=== PATIENT | female | born 1970 | race Caucasian/White ===

== ENCOUNTER 2018-04-24 20:10 | Emergency (ER) | payer OTHER ==
[2018-04-24 20:19] VITALS: BMI 25.1
--- NOTE | 2018-04-24 20:52 | PDOC ---
History of Present Illness <Rhea Barrera - Last Filed: 04/24/18 23:52> - General History Source: Patient - History of Present Illness Initial Comments: 04/24/18 21:11 The patient is a 48 year old female with a PMH of nephrolithiasis (s/p uteral stenting), Hyperthyroidism and Seasonal Allergies presents to our ED c/o 1 month h/o worsening abdominal pain. States the pain is L sided, intermittent, "burning" and sometimes radiates to her back. Came to the ED this evening because the pain has progressively worsened over the last 2-3 days. No dysuria/ hematuria. 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 She was scheduled for TVUS earlier this week however she cancelled because she was on her menstrual cycle. The patient denies chest pain, shortness of breath, fever/chills, numbness/ tingling, recent travel or sick contacts. NKDA Surgical: Uteral Stent Social: denies toxic habits PMD: Dr. Lam ([place]) <Nani Youngblood - Last Filed: 04/25/18 00:18> - General Chief Complaint: Pain, Acute Stated Complaint: PAIN Time Seen by Provider: 04/24/18 20:40 Past History <Rhea Barrera - Last Filed: 04/24/18 23:52> - Past Medical History COPD: No Thyroid Disease: Yes (hyperthyroid) - Suicide/Smoking/Psychosocial Hx Smoking History: Current every day smoker Number of Cigarettes Smoked Daily: 5 Information on smoking cessation initiated: No <Nani Youngblood - Last Filed: 04/25/18 00:18> - Past Medical History Allergies/Adverse Reactions: Allergies Allergy/AdvReac Type Severity Reaction Status Date / Time No Known Allergies Allergy Verified 04/24/18 20:16 Home Medications: Ambulatory Orders Polyethylene Glycol 3350 [Miralax (For Daily Use) -] 17 gm PO ONCE #1 bottle Review of Systems - Review of Systems Constitutional: No: Chills, Fever HEENTM: No: Recent change in vision Respiratory: No: Cough, Shortness of Breath, Hemoptysis Cardiac (ROS): No: Chest Pain, Lightheadedness, Palpitations, Syncope ABD/GI: Yes: Abdominal cramping. No: Constipated, Diarrhea, Nausea, Rectal Bleeding, Vomiting : No: Burning, Dysuria <Nani Youngblood - Last Filed: 04/25/18 00:18> *Physical Exam - Vital Signs Last Vital Signs Temp Pulse Resp BP Pulse Ox 98.5 F 93 H 18 160/88 99 04/24/18 20:16 04/24/18 20:16 04/24/18 20:16 04/24/18 20:16 04/24/18 20:16 <Rhea Barrera - Last Filed: 04/24/18 23:52> - Vital Signs Last Vital Signs Temp Pulse Resp BP Pulse Ox 98.5 F 93 H 18 160/88 99 04/24/18 20:16 04/24/18 20:16 04/24/18 20:16 04/24/18 20:16 04/24/18 20:16 - Physical Exam General Appearance: Yes: Nourished, Appropriately Dressed HEENT: positive: Normal Voice, Hearing Grossly Normal Neck: positive: Trachea midline, Supple Respiratory/Chest: positive: Lungs Clear, Normal Breath Sounds Cardiovascular: positive: Regular Rate, S1, S2 Gastrointestinal/Abdominal: positive: Normal Bowel Sounds, Soft. negative: Distended, Guarding, Rebound, Tenderness, Hernia, Mass Musculoskeletal: negative: CVA Tenderness (R), CVA Tenderness (L) Extremity: positive: Normal Capillary Refill, Normal Inspection Integumentary: positive: Normal Color, Dry, Warm Neurologic: positive: Fully Oriented, Alert <RyliePhuong kiddica - Last Filed: 04/25/18 00:18> Moderate Sedation - Procedure Monitoring Vital Signs: Procedure Monitoring Vital Signs Temperature 98.5 F 04/24/18 20:16 Pulse Rate 93 H 04/24/18 20:16 Respiratory Rate 18 04/24/18 20:16 Blood Pressure 160/88 04/24/18 20:16 O2 Sat by Pulse Oximetry (%) 99 04/24/18 20:16 <Rhea Barrera - Last Filed: 04/24/18 23:52> - Procedure Monitoring Vital Signs: Procedure Monitoring Vital Signs Temperature 98.5 F 04/24/18 20:16 Pulse Rate 93 H 04/24/18 20:16 Respiratory Rate 18 04/24/18 20:16 Blood Pressure 160/88 04/24/18 20:16 O2 Sat by Pulse Oximetry (%) 99 04/24/18 20:16 <Nani Youngblood - Last Filed: 04/25/18 00:18> ED Treatment Course - LABORATORY CBC & Chemistry Diagram: 04/24/18 21:54 04/24/18 21:54 - ADDITIONAL ORDERS Additional order review: Laboratory Results 04/24/18 04/24/18 23:09 21:54 Sodium 142 Potassium 4.3 Chloride 108 H Carbon Dioxide 26 Anion Gap 8 BUN 17 Creatinine 0.7 Creat Clearance w eGFR > 60 Random Glucose 100 Calcium 8.4 L Total Bilirubin < 0.1 L AST 23 ALT 21 Alkaline Phosphatase 73 Total Protein 6.8 Albumin 3.5 Urine Color Yellow Urine Appearance Cloudy Urine pH 6.0 Ur Specific [place] 1.023 Urine Protein 2+ H Urine Glucose (UA) Negative Urine Ketones Negative Urine Blood 3+ H Urine Nitrite Negative Urine Bilirubin Negative Urine Urobilinogen Negative Ur Leukocyte Esterase Trace Urine WBC (Auto) 3 Urine RBC (Auto) 2040 Ur Epithelial Cells Rare Urine Mucus Rare Urine HCG, Qual Negative 04/24/18 21:54 RBC 4.53 MCV 76.9 L MCHC 32.6 RDW 26.2 H MPV 9.6 Neutrophils % 60.5 Lymphocytes % 30.7 Monocytes % 4.7 Eosinophils % 3.4 Basophils % 0.7 - Medications Given in the ED: ED Medications Discontinued Medications Generic Name Dose Route Start Last Admin Trade Name Freq PRN Reason Stop Dose Admin Acetaminophen 975 mg 04/24/18 21:46 04/24/18 22:06 Tylenol - PO 04/24/18 21:47 975 mg ONCE ONE Administration Sodium Chloride 1,000 ml 04/24/18 21:16 04/24/18 22:06 Normal Saline - IV 04/24/18 21:17 1,000 ml ONCE ONE Administration <Rhea Barrera - Last Filed: 04/24/18 23:52> - LABORATORY CBC & Chemistry Diagram: 04/24/18 21:54 04/24/18 21:54 <Nani Youngblood - Last Filed: 04/25/18 00:18> Medical Decision Making - Medical Decision Making 04/24/18 21:14 48 year old female with PMH of hyperthyroidism and nephrolithiasis presents with cramping abdominal pain that radiates to her R flank. DDx includes: obstructive nephrolithiasis, cystitis/pyelonephritis, also consider ovarian torsion, gastritis. Will obtain basic labs, UA/Urine Cx. Reassess. 04/24/18 22:01 IV access in R AC - 20 lc Labs drawn and pending 04/24/18 22:12 No leukocytosis 04/24/18 22:51 CMP unremarkable. 04/24/18 23:28 UA shows 3+ blood, patient currently on menstrual cycle Urine negative 04/24/18 23:43 Patient reassessed @ bedside. Pain improved. 04/24/18 23:44 TVUS negative for torsion Renal U/S pending 04/24/18 23:46 Renal U/S negative for hydronephrosis, renal mass or stone. Patient symptomatically improved, tolerating PO intake, ambulatory. Will discharge home with supportive care and PMD follow-up. I discussed the physical exam findings, ancillary test results and final diagnoses with the patient. I answered all of the patient's questions. The patient was satisfied with the care received and felt comfortable with the discharge plan and treatment plan. The patient will return to the Emergency Department with any new, persistent or worsening symptoms. <Nani Youngblood - Last Filed: 04/25/18 00:18> *DC/Admit/Observation/Transfer - Discharge Dispostion Decision to Admit order: No <BarreraRhea - Last Filed: 04/24/18 23:52> <Nani Youngblood - Last Filed: 04/25/18 00:18> Diagnosis at time of Disposition: Constipation - Discharge Dispostion Disposition: HOME Condition at time of disposition: Improved - Prescriptions Prescriptions: Polyethylene Glycol 3350 [Miralax (For Daily Use) -] 17 gm PO ONCE #1 bottle - Referrals Referrals: ON STAFF,NOT [Primary Care Provider] - - Patient Instructions Printed Discharge Instructions: Constipation Additional Instructions: Your ultrasound showed constipation. We have sent a prescription to your pharmacy. Please take as directed. Follow-up with your primary care doctor in the next 1 week. We have provided copies of your ultrasound. Please take these to your primary care appointment. Your care is not complete until you are evaluated by your primary care doctor.
[2018-04-24] MEDS ORDERED: SODIUM CHLORIDE 0.9% 500 ML INFUS.BAG IV ONE (21:16)
--- NOTE | 2018-04-24 21:27 | PDOC ---
Attending Attestation - HPI HPI: 04/24/18 23:04 The patient is a 48 year old female with a significant past medical history of nephrolithiasis (s/p uteral stenting), s/p tubal ligation (5 years ago) Hyperthyroidism and Seasonal Allergies who presents to the ED complaining of constant, intense lower left quadrant pain radiating to her left flank. The patient notes she has been constipated, last bowel movement was today but very little, but prior to today, last stool was Wednesday. The patient reports to not be passing gas. Patient states this pain has been present for months but has worsened recently. Patient denies pain with urination, chills, fever, vomiting, nausea, diarrhea. - Physicial Exam PE: 04/24/18 23:16 GENERAL: Awake, alert, and fully oriented, in no acute distress HEAD: No signs of trauma LUNGS: Breath sounds equal, clear to auscultation bilaterally. No wheezes, and no crackles HEART: Regular rate and rhythm, normal S1 and S2, no murmurs, rubs or gallops ABDOMEN: (+) minimal diffuse tenderness. Soft, normoactive bowel sounds. No rebound or guarding. No masses EXTREMITIES: Normal range of motion, no edema. No clubbing or cyanosis. No cords, erythema, or tenderness NEUROLOGICAL: Cranial nerves II through XII grossly intact. Normal speech, normal gait SKIN: Warm, Dry, normal turgor, no rashes - Medical Decision Making 04/24/18 23:19 Documentation prepared by Martha Oreilly, acting as medical laboratory assistant for Rhea Barrera MD. <Martha Oreilly - Last Filed: 04/24/18 23:16> - Resident Resident Name: Nani Youngblood - ED Attending Attestation I have performed the following: I have examined & evaluated the patient, The case was reviewed & discussed with the resident, I agree w/resident's findings & plan - Medical Decision Making 04/24/18 23:22 Labs are normal. Pt has a microcytic anemia. Pt is afebrile and she has improved abd pain. She has been constipated. Last BM was minimal today and then prior to today it was on Wed 5 days ago. She is very gassy and has abd pain that is mild and diffuse. She has no rebound and no guarding, and no flank pain. 04/24/18 23:43 3+ blood in the urine; pt is on her menses. Pt has trace leukocytes- not an infection 04/24/18 23:44 Negative preg test (pt has a hx of tubal ligation 5 yrs ago) Patient Name: JESSICA HEARD THIS IS A PRELIMINARY REPORT FROM [facility] DATE OF SERVICE: 2018-04-24 23:02:26 IMAGES: 34 EXAM: Ultrasound TRANSVAGINAL ULTRASOUND US HISTORY: Left lower quadrant pain COMPARISON: None. FINDINGS: The uterus measures 10.8 cm in length. Endometrium is 7 mm. Left ovary measures 1.6 x 2.7 x 1.8 cm. Doppler imaging demonstrates positive vascular flow with arterial and venous waveforms. The right ovary measures 2.0 x 3.3 x 2.2 cm. Doppler imaging demonstrates positive vascular flow with arterial and venous waveforms IMPRESSION: No acute findings. No ovarian torsion 04/24/18 23:45 Pt has gas and constipation and she will be discharged once her other sono result returns. 04/24/18 23:52 Patient Name: JESSICA HEARD THIS IS A PRELIMINARY REPORT FROM [facility] DATE OF SERVICE: 2018-04-24 22:54:36 IMAGES: 38 EXAM: Ultrasound KIDNEY / RENAL US HISTORY: Left lower quadrant pain COMPARISON: None. FINDINGS: Right kidney measures 11.3 cm in length. There is a 3.9 x 3.6 x 3.8 cm cyst. There is no hydronephrosis or renal stone The left kidney measures 11.3 cm in length without hydronephrosis, renal mass, or stone IMPRESSION: No acute findings <Rhea Barrera - Last Filed: 04/24/18 23:52>
[2018-04-24] MEDS ORDERED: ACETAMINOPHEN 500 MG TABLET (FP) PO ONE (21:46)
[2018-04-24] MEDS ORDERED: ACETAMINOPHEN 325 MG TABLET (FP) ONE (22:01)
[2018-04-24 22:03] LABS: BASO % 0.7 % (0-2.0); EOS % 3.4 % (0-4.5); HEMATOCRIT 34.8 % (32.4-45.2); HEMOGLOBIN 11.4 GM/dL (10.7-15.3); LYMPH % 30.7 % (8-40); MCH 25.1 pg (25.7-33.7); MCHC 32.6 g/dl (32.0-36.0); MEAN CELL VOLUME 76.9 fl (80-96); MEAN PLT VOLUME 9.6 fl (7.5-11.1); MONO % 4.7 % (3.8-10.2); NEUT % 60.5 % (42.8-82.8); PLATELET COUNT 245 K/MM3 (134-434); RBC 4.53 M/mm3 (3.60-5.2); RDW 26.2 % (11.6-15.6); WHITE BLOOD COUNT 8.2 K/mm3 (4.0-10.0)
[2018-04-24] MEDS ORDERED: POLYETHYLENE GLYCOL 3350 119 GM BTL PO ONE (22:20)
[2018-04-24] MEDS ORDERED: LACTULOSE 20 GM/30 ML UDC (FOR ORAL USE ONLY) PO ONE (22:20)
[2018-04-24 22:47] LABS: ALBUMIN 3.5 g/dl (3.4-5.0); ALK PHOS 73 U/L (45-117); ANION GAP 8 MMOL/L (8-16); BILIRUBIN,TOTAL < 0.1 mg/dL (0.2-1); BLOOD UREA NITROGEN 17 mg/dL (7-18); CALCIUM 8.4 mg/dL (8.5-10.1); CHLORIDE 108 mmol/L (98-107); CO2 26 mmol/L (21-32); CREATININE 0.7 mg/dL (0.55-1.3); GLUCOSE,RANDOM 100 mg/dL (74-106); SGPT/ALT 21 U/L (13-61); SODIUM 142 mmol/L (136-145); TOT PROT 6.8 g/dl (6.4-8.2)
[2018-04-24 22:48] LABS: POTASSIUM 4.3 mmol/L (3.5-5.1); SGOT/AST 23 U/L (15-37)
[2018-04-24 23:17] LABS: URINE APPEARANCE CLOUDY; URINE BILIRUBIN NEGATIVE (<2.0 mg/dL); URINE COLOR YELLOW; URINE GLUCOSE (UA) NEGATIVE (NEGATIVE); URINE KETONE NEGATIVE (NEGATIVE); URINE LEUK ESTERASE TRACE (NEGATIVE); URINE NITRITE NEGATIVE (NEGATIVE); URINE PROTEIN 2+ (NEGATIVE); URINE UROBILINOGEN NEGATIVE mg/dL (0.2-1.0)
[2018-04-24 23:19] LABS: ANISOCYTOSIS 2+
[2018-04-24 23:25] LABS: EPI CELLS RARE /HPF (FEW); URINE MUCUS RARE
[2018-04-24 23:26] LABS: HCG,QUALITATIVE URINE Negative
[2018-04-24] MEDS ORDERED: LACTULOSE 20 GM/30 ML UDC (FOR ORAL USE ONLY) ONE (23:54)
[2018-04-25 00:09] VITALS: BP 122/71; PULSE 79; TEMP 97.9
== END 2018-04-25 00:13 | disposition home or self-care (01) ==
LOC: SUPCPDRO 20:10 → JER 20:10
DX: K59.00 Constipation, unspecified (principal); E05.90 Thyrotoxicosis, unspecified without thyrotoxic crisis or storm; F17.210 Nicotine dependence, cigarettes, uncomplicated; Z87.442 Personal history of urinary calculi; Z96.0 Presence of urogenital implants
CPT/HCPCS: 36415; 76775-TC; 76830-TC; 80053; 81003; 81015; 84703; 85025; 87086; 99282-25

== ENCOUNTER 2018-05-26 13:49 | Emergency (ER) | payer OTHER ==
[2018-05-26 14:09] VITALS: BP 118/83; PULSE 96; TEMP 98; BMI 25.1
[2018-05-26] MEDS ORDERED: METOCLOPRAMIDE HCL INJECTION 10 MG/2 ML VIAL IVPUSH ONE (14:42)
[2018-05-26] MEDS ORDERED: KETOROLAC TROMETHAMINE 30 MG/1 ML VIAL IVPUSH ONE (14:42)
--- NOTE | 2018-05-26 14:50 | PDOC ---
History of Present Illness - General Chief Complaint: Headache Stated Complaint: HEADACHE Time Seen by Provider: 05/26/18 14:15 History Source: Patient Exam Limitations: No Limitations - History of Present Illness Initial Comments: 05/26/18 14:44 HISTORY OF PRESENT ILLNESS: 48-year-old female with history of hyperthyroidism and tubal ligation who presents to the emergency department for evaluation of right-sided headache which is been intermittent for the past 7 days. Patient's been taking [id number] Motrin which is had some relief of symptoms. Patient reports the headache is waxing and waning rating her pain from a 2-8/ 10. Currently is 8/10. Patient describes the pain as "my heart beat in my head. " She denies any nausea or vomiting, blurry vision, dizziness, difficulty walking or other neurologic symptoms. No recent travel or sick contacts. PAST MEDICAL HISTORY: see HPI SURGICAL HISTORY: Denies ALLERGIES: No known drug allergies REVIEW OF SYSTEMS General/Constitutional: Denies fever or chills. Denies weakness, weight change. HEENT: Denies change in vision. Denies ear pain or discharge. Denies sore throat. Cardiovascular: Denies chest pain or shortness of breath. Respiratory: Denies cough, wheezing, or hemoptysis. Gastrointestinal: Denies nausea, vomiting, diarrhea or constipation. Denies rectal bleeding. Genitourinary: Denies dysuria, frequency, or change in urination. Musculoskeletal: Denies joint or muscle swelling or pain. Denies neck or back pain. Skin and breasts: Denies rash or easy bruising. Neurologic: see HPI Psychiatric: Denies depression or anxiety. Endocrine: Denies increased thirst. Denies abnormal weight change. Hematologic/Lymphatic: Denies anemia, easy bleeding, or history of blood clots. Allergic/Immunologic: Denies hives or skin allergy. Denies latex allergy. PHYSICAL EXAM General Appearance: Well-appearing, appropriately dressed. No apparent distress , no intoxication. HEENT: EOMI, PERRLA, normal ENT inspection, normal voice, TMs normal, pharynx normal. No conjunctival pallor. No photophobia, scleral icterus. +right sided frontal and maxillary sinus tenderness. Neck: Supple. Trachea midline. No tenderness, rigidity, carotid bruit, stridor , lymphadenopathy, or thyromegaly. Respiratory/Chest: Lungs CTAB. No shortness of breath, chest tenderness, respiratory distress, accessory muscle use. No crackles, rales, rhonchi, stridor , wheezing, dullness Cardiovascular: RRR. S1, S2. No JVD, murmur, bradycardia, tachycardia. Vascular Pulses: Dorsalis-Pedis (R): 2+, Dorsalis-Pedis (L): 2+ Gastrointestinal/Abdominal: Normal bowel sounds. Abdomen soft, non-distended. No tenderness or rebound tenderness. No organomegaly, pulsatile mass, guarding, hernia, hepatomegaly, splenomegaly. Lymphatic: No adenopathy, tenderness. Musculoskeletal/Extremities: Normal inspection. FROM of all extremities, normal capillary refill. Pelvis Stable. No CVA tenderness. No tenderness to extremities, pedal edema, swelling, erythema or deformity. Integumentary: Appropriate color, dry, warm. 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 Fully oriented, alert. Appropriate mood/affect. Motor strength 5/5. No appreciable EOM palsy, facial droop or sensory deficit. EOMI. Pupils 4 mm and briskly reactive to light bilaterally. Past History - Past Medical History Allergies/Adverse Reactions: Allergies Allergy/AdvReac Type Severity Reaction Status Date / Time No Known Allergies Allergy Verified 04/24/18 20:16 Home Medications: Ambulatory Orders Polyethylene Glycol 3350 [Miralax (For Daily Use) -] 17 gm PO ONCE #1 bottle COPD: No Thyroid Disease: Yes (hyperthyroid) - Suicide/Smoking/Psychosocial Hx Smoking History: Current every day smoker Have you smoked in the past 12 months: Yes Number of Cigarettes Smoked Daily: 5 Information on smoking cessation initiated: No Hx Alcohol Use: No Drug/Substance Use Hx: No *Physical Exam - Vital Signs Last Vital Signs Temp Pulse Resp BP Pulse Ox 98 F 96 H 20 118/83 99 05/26/18 14:05 05/26/18 14:05 05/26/18 14:05 05/26/18 14:05 05/26/18 14:05 Moderate Sedation - Procedure Monitoring Vital Signs: Procedure Monitoring Vital Signs Temperature 98 F 05/26/18 14:05 Pulse Rate 96 H 05/26/18 14:05 Respiratory Rate 20 05/26/18 14:05 Blood Pressure 118/83 05/26/18 14:05 O2 Sat by Pulse Oximetry (%) 99 05/26/18 14:05 Medical Decision Making - Medical Decision Making 05/26/18 14:47 A/P: 48-year-old woman with right-sided headache intermittent for one week Sinus tenderness over the frontal and maxillary sinuses on the right side Nasal congestion present Differential diagnoses include sinusitis, hormonal headache, migraines Toradol Benadryl Reglan Reassess 05/26/18 16:06 Pain currently 0/10 after receiving rescue medications. I'll discharge patient home with neurology follow-up. I discussed the physical exam findings, ancillary test results and final diagnoses with the patient. I answered all of the patient's questions. The patient was satisfied with the care received and felt comfortable with the discharge plan and treatment plan. The patient will call their primary care physician within 24 hours to arrange follow-up and will return to the Emergency Department with any new, persistent or worsening symptoms. *DC/Admit/Observation/Transfer Diagnosis at time of Disposition: Headache associated with hormonal factors - Discharge Dispostion Disposition: HOME Condition at time of disposition: Stable Decision to Admit order: No - Referrals - Patient Instructions Additional Instructions: Take Tylenol or Motrin as needed for headaches. Keep a diary of all food to eat and activities performed prior to headaches starting. Make an appointment with her primary doctor for reevaluation within the next week. Return to emergency department for worsening headache, blurry vision, dizziness , nausea, vomiting or any other concerns. Thank you very much for for choosing us to provide emergent health care needs. - Post Discharge Activity
[2018-05-26] MEDS ORDERED: METOCLOPRAMIDE HCL INJECTION 10 MG/2 ML VIAL ONE (15:08)
[2018-05-26] MEDS ORDERED: KETOROLAC TROMETHAMINE 30 MG/1 ML VIAL ONE (15:08)
== END 2018-05-26 16:17 | disposition home or self-care (01) ==
LOC: JERFT 13:49
PROC: 3E033GC Introduction of Other Therapeutic Substance into Peripheral Vein, Percutaneous Approach (ICD-10-PCS; principal; 2018-05-26)
PROC: 3E033GC Introduction of Other Therapeutic Substance into Peripheral Vein, Percutaneous Approach (ICD-10-PCS; 2018-05-26)
PROC: 3E0333Z Introduction of Anti-inflammatory into Peripheral Vein, Percutaneous Approach (ICD-10-PCS; 2018-05-26)
DX: G44.89 Other headache syndrome (principal)
CPT/HCPCS: 99281-25

== ENCOUNTER 2018-08-31 11:30 | Emergency (ER) | payer OTHER | END 2018-08-31 15:52 | disposition home or self-care (01) | LOC: JER 11:30 ==